=== PATIENT | female | born 1975 | race Caucasian/White ===

== ENCOUNTER 2024-12-27 08:01 | Emergency (ER) | payer OTHER, SELFPAY ==
[2024-12-27 08:38] VITALS: BP 135/79; PULSE 73; RESP 16; TEMP 36.3; O2SAT 98; BMI 37.1
--- NOTE | 2024-12-27 08:39 | ED_ITS ---
HPI - Back Pain/Injury General Chief Complaint: Back Pain/Injury Stated Complaint: Back pain hurt at work L&I Time Seen by Provider: 12/27/24 08:14 History of Present Illness HPI Narrative: Patient here for right greater than left back pain and upper back pain for the past 1 week. 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 Since then she has seen urgent Care and L and I case has been open and claim number and is off work. She was given methocarbamol and Toradol without relief. Denies denies any bowel or bladder incontinence or retention. No saddle paresthesia. No leg numbness tingling or weakness.. She states at times pain/numbness will rate to the right hand/arm. Denies does not want a test. Patient states she has had Percocet in the past without allergic reaction Related Data Previous Rx's ?Medication ?Instructions ?Recorded oxycodone-acetaminophen 5 mg-325 1 tab PO Q4-6H PRN pa in #16 tabs 12/27/24 mg tablet (Percocet) Allergies Allergy/AdvReac Type Severity Reaction Status Date / Time acetaminophen (From Vicodin) Allergy Mild ITCHING Verified 12/27/24 08:39 hydrocodone (From Vicodin) Allergy Mild ITCHING Verified 12/27/24 08:39 Penicillins Allergy Unknown Unverified 12/27/24 08:39 ciprofloxacin (From Cipro) AdvReac Mild Gastrointestinal Verified 12/27/24 08:39 Upset Review of Systems Review of Systems Narrative: GENERAL: Negative chills, fatigue, malaise, fever, sweats. HEENT: Negative sinus pain, ear pain, sore throat RESPIRATORY: Negative dyspnea, cough CARDIOVASCULAR: Negative chest pain, palpitations GASTROINTESTINAL: Negative vomiting, nausea, abdominal pain : Negative dysuria, frequency, hematuria MUSCULOSKELETAL: Positive back, muscle or bony pain SKIN: Negative rash, skin lesions NEUROLOGIC: Negative weakness, positive numbness ROS Unobtainable: All systems reviewed & are unremarkable except as noted in HPI and below Patient History Social History Smoking Status: Never smoker Exam Narrative Exam Narrative: GENERAL: in no distress, not toxic not dyspneic HEAD: Normocephalic. EYES: Pupils equal round ENT: Mucous membranes moist. NECK: Trachea midline. CARDIOVASCULAR: Regular rate and rhythm RESPIRATORY: Clear to auscultation. Breath sounds equal bilaterally. No wheezes, rales, or rhonchi. GASTROINTESTINAL: Abdomen soft, non-tender EXTREMITIES: No gross deformities. BACK: No midline tenderness or step-off of the cervical thoracic or lumbar spine. There is reproducible muscle spasm tenderness of the paralumbar parathoracic and trapezius and paracervical muscles on the right. Increased pain with rotating the neck left and right and tilting up and down, pain shoots down the right arm. Examination right upper extremity nontender shoulder elbow wrist and hand. Light touch intact to deltoid fingers and thumb. 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 Brisk cap refills. In seated position patient able to bring right leg to 90? without pain. NEURO: AOx4. Clear speech, light touch intact to bilateral legs and ankles. Strong bilateral patellar reflexes and ankle flexion-extension. SKIN: Warm and dry PSYCH: Not anxious, is cooperative Initial Vital Signs Initial Vital Signs: Vital Signs Temperature 97.4 F L 12/27/24 08:38 Pulse Rate 73 12/27/24 08:38 Respiratory Rate 16 12/27/24 08:38 Blood Pressure 135/79 12/27/24 08:38 Pulse Oximetry 98 12/27/24 08:38 Oxygen Delivery Method Room Air 12/27/24 08:38 Course Orders Ordered: ED Orders 12/27/24 08:38 XR cervical spine 2V or 3V Stat XR lumbar spine 2-3V Stat XR thoracic spine 3V Stat Vital Signs Vital signs: Vital Signs - 8 hr 12/27/24 08:38 12/27/24 10:36 Temperature 97.4 F L Pulse Rate 73 68 Respiratory Rate 16 16 Blood Pressure 135/79 130/78 Pulse Oximetry 98 97 Oxygen Delivery Method Room Air Room Air MDM - Back Pain/Injury Imaging Data X-ray cervical spine: Radiologist's Impression: [address] [address] XRay Report Signed Patient: Jessy Hutchison MR#: [id number] : 1975 Acct:[id number] Age/Sex: 49 / F Date of Service: 12/27/24 Loc: ED Accession Number: [id number] Procedure: XR cervical spine 2V or 3V Ordering Provider: Hong Zhang MD PROCEDURE: XR CERVICAL SPINE 2V OR 3V INDICATIONS: Pain/injury TECHNIQUE: 3 view(s) of the cervical spine were acquired. COMPARISON: [facility], CR, XR THORACIC SPINE 3V, 12/27/2024, 8:40. FINDINGS: Bones: No fractures or dislocations to the C7 level. The lateral masses of C1 appear intact on the odontoid view. No suspicious bony lesions. Spine degenerative disc disease, facet arthropathy and uncovertebral arthropathy. Soft tissues: No prevertebral soft tissue swelling. Left-sided Port-A-Cath. IMPRESSION: No fracture. No acute osseous lesion. If symptoms and/or clinical suspicion for pathology persists, evaluation with CT or MRI should be considered for further assessment. Dictated by: Kandi Lizama MD, PhD on 12/27/2024 at 9:08 Approved by: Kandi Lizama MD, PhD on 12/27/2024 at 10:14 X-ray thoracic spine: Radiologist's Impression: [address] [address] XRay Report Signed Patient: Jessy Hutchison MR#: [id number] : 1975 Acct:[id number] Age/Sex: 49 / F Date of Service: 12/27/24 Loc: ED Accession Number: [id number] Procedure: XR thoracic spine 3V Ordering Provider: Hong hZang MD PROCEDURE: XR THORACIC SPINE 3V INDICATIONS: Pain/injury TECHNIQUE: 3 views of the thoracic spine were acquired. COMPARISON: None. FINDINGS: Bones: No fractures or dislocations. No suspicious bony lesions. 12 pairs of ribs are noted, and appear intact where visualized. Spine degenerative disc disease and facet arthropathy. Soft tissues: No paravertebral stripe thickening. Left-sided MediPort. Cholecystectomy clips. IMPRESSION: No fracture. No acute osseous lesion. If symptoms and/or clinical suspicion for pathology persists, evaluation with CT or MRI should be considered for further assessment. Dictated by: Kandi Lizama MD, PhD on 12/27/2024 at 9:26 Approved by: Kandi Lizama MD, PhD on 12/27/2024 at 9:27 X-ray lumbar spine: Radiologist's Impression: [address] [address] XRay Report Signed Patient: Jessy Hutchison MR#: [id number] : 1975 Acct:[id number] Age/Sex: 49 / F Date of Service: 12/27/24 Loc: ED Accession Number: [id number] Procedure: XR lumbar spine 2-3V Ordering Provider: Hong Zhang MD PROCEDURE: XR LUMBAR SPINE 2-3V INDICATIONS: Pain/injury TECHNIQUE: 3 views of the lumbar spine were acquired. COMPARISON: None. FINDINGS: Bones: 5 [id number] vertebrae are present. There is mild, approximately 8 millimeters of L5-S1 anterolisthesis secondary to L5 pars defects No vertebral body compression fractures. No suspicious bony lesions. Mild multilevel degenerative disc disease and facet arthropathy. Soft tissues: Overlying bowel gas pattern is normal. No suspicious soft tissue calcifications. IMPRESSION: No acute fracture or acute osseous lesion. If there is continued clinical concern for pathology consider CT or MRI of the lumbar spine for additional evaluation. Dictated by: Kandi Lizama MD, PhD on 12/27/2024 at 9:20 Approved by: Kandi Lizama MD, PhD on 12/27/2024 at 10:14 [facility] Narrative Medical decision making narrative: Patient here for left-sided back pain and upper back pain for the past 1 week. 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 Since then she has seen urgent Care and L and I case has been open and claim number and is off work. She was given methocarbamol and Toradol without relief. Denies denies any bowel or bladder incontinence or retention. No saddle paresthesia. No leg numbness tingling or weakness.. She states at times pain/numbness will rate to the right hand/arm. Denies does not want a test. Patient states she has had Percocet in the past without allergic reaction After history and exam, x-ray cervical thoracic or lumbar spine [facility] Medical records reviewed: No recent visit here for this complaint Differential considered: Includes but not limited to lumbar started Thoracics drain cervical strain cervical radiculopathy Imaging studies independently reviewed: X-ray cervical thoracic and lumbar spines, no acute finding Consultations: None indicated at this time Re-evaluations: 10:26 a.m. Updated patient results and findings. She does have L and I case already open. No forms to complete today. She would like upgrade of medication to Percocet for breakthrough pain. Return precautions reviewed. She desires discharge home. Discussion: Appropriate for discharge home. Exam is reassuring. Patient neurologically intact. No MRI or CT scan imaging indicated this time. Return precautions reviewed. She desires discharge home. She states she does not need L and I forms completed. They have already been done with another facility Diagnosis: Cervical radiculopathy back strain Discharge Plan Departure Patient Disposition: Home Clinical Impression: Cervical radiculopathy Back strain Qualifiers: Encounter type: initial encounter Qualified Code(s): S39.012A - Strain of muscle, fascia and tendon of lower back, initial encounter Instructions: DI for Cervical Radiculopathy, DI for Back Strain or Sprain Activity Restrictions/Additional Instructions: No driving operating machinery when taking prescribed pain medication. Please follow up with L and I provider assigned to you. Return if worse if any questions or concerns. Today's exam and imaging studies are reassuring. You may need to schedule outpatient MRI of your spine with your L and I provider or family doctor. Prescriptions: New oxycodone-acetaminophen [Percocet] 5-325 mg tablet 1 tab PO Q4-6H PRN (Reason: pain) Qty: 16 0RF Stand Alone Forms: Patient Portal/API
[2024-12-27 10:36] VITALS: BP 130/78; PULSE 68; RESP 16; O2SAT 97
== END 2024-12-27 10:36 | disposition home or self-care (01) ==
PROVIDERS: Emergency Provider Emergency Medicine
DX: S39.012A Strain of muscle, fascia and tendon of lower back, initial encounter (principal); M54.12 Radiculopathy, cervical region; X50.9XXA Other and unspecified overexertion or strenuous movements or postures, initial encounter; Y93.F2 Activity, caregiving, lifting
CPT/HCPCS: 72040; 72072; 72100; 99281; 99284